=== PATIENT | male | born 1970 | race African-American/Black ===

== ENCOUNTER 2022-05-22 11:58 | Observation (INO) | payer OTHER ==
[2022-05-22 12:28] VITALS: BP 135/74; PULSE 95; RESP 24; TEMP 98; BMI 69.7
[2022-05-22 13:11] LABS: BASO % 0.4 % (0-2.0); EOS % 0.4 % (0-4.5); HEMATOCRIT 37.6 % (35.4-49); HEMOGLOBIN 12.2 GM/dL (11.7-16.9); LYMPH % 19.3 % (8-40); MCHC 32.3 g/dl (32.0-35.9); MEAN CELL VOLUME 92.9 fl (80-96); MEAN PLT VOLUME 8.6 fl (7.5-11.1); MONO % 7.6 % (3.8-10.2); NEUT % 72.3 % (42.8-82.8); PLATELET COUNT 168 10^3/uL (134-434); RBC 4.05 M/mm3 (4.00-5.60); RDW 14.2 % (11.9-15.9); WHITE BLOOD COUNT 7.1 K/mm3 (4.0-10.0)
[2022-05-22 13:32] LABS: CALCIUM 8.8 mg/dL (8.5-10.1)
[2022-05-22 13:33] LABS: ALBUMIN 3.5 g/dl (3.4-5.0); BLOOD UREA NITROGEN 16.6 mg/dL (7-18)
[2022-05-22 13:35] LABS: CREATININE 0.7 mg/dL (0.55-1.3)
[2022-05-22 13:37] LABS: TOT PROT 7.2 g/dl (6.4-8.2)
[2022-05-22 13:38] LABS: BILIRUBIN,TOTAL 0.3 mg/dL (0.2-1)
[2022-05-22 14:10] LABS: PH,URINE 5.5 (5.0-8.0); URINE APPEARANCE CLEAR; URINE BILIRUBIN NEGATIVE (NEGATIVE); URINE COLOR YELLOW; URINE GLUCOSE (UA) NEGATIVE (NEGATIVE); URINE KETONE NEGATIVE (NEGATIVE); URINE LEUK ESTERASE NEGATIVE (NEGATIVE); URINE NITRITE NEGATIVE (NEGATIVE); URINE PROTEIN NEGATIVE (NEGATIVE)
[2022-05-22] MEDS ORDERED: MECLIZINE HCL 25 MG TABLET (FP) PO ONE (15:19)
[2022-05-22] MEDS ORDERED: MECLIZINE HCL 12.5 MG TABLET PO PRN (15:20)
[2022-05-22] MEDS ORDERED: MECLIZINE HCL 25 MG TABLET (FP) ONE (15:25)
[2022-05-22] MEDS ORDERED: ATORVASTATIN CA 10 MG TABLET (FP) PO SCH (22:00)
[2022-05-23] MEDS ORDERED: amLODIPine BESYLATE 5 MG TABLET (FP) PO SCH (10:00)
[2022-05-23] MEDS ORDERED: ASPIRIN 81 MG CHEWABLE TABLETS PO SCH (10:00)
== END 2022-05-22 20:00 | disposition left against medical advice (07) ==
LOC: JER 11:58 → JERBED 15:02
PROVIDERS: ADMIT Internal Medicine; ATTEND Internal Medicine
DX: R07.9 Chest pain, unspecified (principal); R42 Dizziness and giddiness; I10 Essential (primary) hypertension; E78.5 Hyperlipidemia, unspecified; R53.81 Other malaise; E66.01 Morbid (severe) obesity due to excess calories; Z68.44 Body mass index [BMI] 60.0-69.9, adult; Z91.199 Patient's noncompliance with other medical treatment and regimen due to unspecified reason; F41.9 Anxiety disorder, unspecified; F17.210 Nicotine dependence, cigarettes, uncomplicated; R26.81 Unsteadiness on feet; R51.9 Headache, unspecified
CPT/HCPCS: 36415; 70450-TC; 71045-TC-FY; 80053; 81003; 84484; 85025; 87086; 93005; 93010; 99285-25; C9803-CS; G0378; U0003; U0005